=== PATIENT | male | born 1960 | race Caucasian/White ===

== ENCOUNTER → 2017-08-18 | Outpatient (CLI) | payer BC | END | disposition home or self-care (01) | LOC: CARDREHAB 10:43 | DX: R07.9 Chest pain, unspecified (principal) ==

== ENCOUNTER → 2019-10-12 | Outpatient (CLI) | payer BC | LOC: LAB 12:50 | DX: R05 Cough (principal); R53.83 Other fatigue ==

== ENCOUNTER → 2020-05-21 | Outpatient (CLI) | payer BC | LOC: LAB 07:21 | DX: J02.9 Acute pharyngitis, unspecified (principal); R19.7 Diarrhea, unspecified; Z20.828 Contact with and (suspected) exposure to other viral communicable diseases ==

== ENCOUNTER → 2020-08-27 | Outpatient (CLI) | payer BC ==
[2020-08-27 17:14] LABS: HEMATOCRIT 46.5 % (42.0-52.0); HEMOGLOBIN 15.2 g/dL (13.5-18.0); MEAN CELL VOLUME 89 fl (78-100); MEAN CORPUSCULAR HEMOGLOBIN 29 pg (27-31); MEAN CORPUSCULAR HGB CONC 33 g/dL (33-37); MEAN PLATELET VOLUME 8.5 fl (7.4-10.4); PLATELET COUNT 308 K/mm3 (130-400); RED BLOOD COUNT 5.22 M/mm3 (4.20-5.60); RED CELL DISTRIBUTION WIDTH 12.6 % (11.5-14.5); WHITE BLOOD COUNT 11.5 K/mm3 (4.8-10.8)
[2020-08-27 17:27] LABS: POTASSIUM 3.9 mmol/L (3.5-5.1)
[2020-08-27 17:28] LABS: ALBUMIN 4.1 g/dL (3.5-5.0)
[2020-08-27 17:29] LABS: CALCIUM 8.9 mg/dL (8.3-10.5)
[2020-08-27 17:30] LABS: TOTAL PROTEIN 7.3 g/dL (6.4-8.3)
[2020-08-27 17:32] LABS: TOTAL BILIRUBIN 0.6 mg/dL (0.2-1.2)
[2020-08-27 19:02] LABS: LYMPHOCYTE 2 % (20-51); MONOCYTE 2 % (3-10); NEUTROPHILS 96 % (42-75)
[2020-08-28 18:13] LABS: HEPATITIS C ANTIBODY Negative (Negative)
[2020-08-28 19:17] LABS: SYPHILIS AB SCREEN w REFLEX Negative (Negative)
== END ==
LOC: LAB 17:02
PROVIDERS: Family Medicine
DX: Z00.00 Encounter for general adult medical examination without abnormal findings (principal); E78.5 Hyperlipidemia, unspecified; Z72.51 High risk heterosexual behavior

== ENCOUNTER → 2020-09-24 | Outpatient (REF) | LOC: LAB 09:13 | DX: R53.83 Other fatigue (principal); E55.9 Vitamin D deficiency, unspecified ==

== ENCOUNTER → 2020-10-16 | Outpatient (CLI) | payer BC | LOC: RAD 10:50 | DX: M41.86 Other forms of scoliosis, lumbar region (principal); M51.36 Other intervertebral disc degeneration, lumbar region ==

== ENCOUNTER → 2020-10-16 | Outpatient (REF) | LOC: LAB 10:50 | DX: Z72.51 High risk heterosexual behavior (principal) ==

== ENCOUNTER → 2020-10-26 | Outpatient (REF) | LOC: LAB 10:53 | DX: Z72.51 High risk heterosexual behavior (principal) ==

== ENCOUNTER → 2021-01-23 | Outpatient (REF) | LOC: LAB 14:50 | DX: R05 Cough (principal) ==

== ENCOUNTER → 2021-03-26 | Outpatient (REF) | LOC: LAB 10:17 | DX: R05.9 Cough, unspecified (principal) ==

== ENCOUNTER 2021-05-21 16:42 | Emergency (ER) | payer BC ==
[2021-05-21 17:23] LABS: BASO # 0.04 K/mm3 (0.02-0.10); EOS # 0.16 K/mm3 (0.04-0.40); EOS % 2.5 % (0.0-4.0); HEMATOCRIT 44.9 % (42.0-52.0); LYMPH# 1.46 K/mm3 (1.50-4.00); MEAN CELL VOLUME 89 fl (78-100); MEAN CORPUSCULAR HEMOGLOBIN 30 pg (27-31); MEAN CORPUSCULAR HGB CONC 33 g/dL (33-37); MEAN PLATELET VOLUME 8.6 fl (7.4-10.4); MONO # 0.44 K/mm3 (0.20-0.80); NEU # 4.33 K/mm3 (1.40-6.50); PLATELET COUNT 276 K/mm3 (130-400); RED BLOOD COUNT 5.03 M/mm3 (4.20-5.60); WHITE BLOOD COUNT 6.4 K/mm3 (4.8-10.8)
[2021-05-21 17:32] LABS: ALBUMIN 4.4 g/dL (3.5-5.0)
[2021-05-21 17:33] LABS: POTASSIUM 3.7 mmol/L (3.5-5.1); SODIUM 141 mmol/L (136-145)
[2021-05-21 17:34] LABS: CALCIUM 9.5 mg/dL (8.3-10.5)
[2021-05-21 17:35] LABS: GLUCOSE 94 mg/dL (75-110); TOTAL PROTEIN 7.4 g/dL (6.4-8.3)
[2021-05-21 17:36] LABS: CARBON DIOXIDE 26 mmol/L (22-29)
[2021-05-21 17:37] LABS: TOTAL BILIRUBIN 0.6 mg/dL (0.2-1.2)
[2021-05-21 17:40] LABS: AST-SGOT 15 U/L (5-34)
[2021-05-21 17:41] LABS: ALT/SGPT 13 U/L (0-55)
[2021-05-21 17:49] LABS: TROPONIN-I < 0.03 ng/mL (<0.030)
[2021-05-21 17:53] LABS: D-DIMER 0.1 mg/L FEU (0.15-0.50)
[2021-05-21] MEDS ORDERED: ZYRTEC10 M3 PO (18:48)
[2021-05-21] MEDS ORDERED: PROAIR HFA0.09 MG/AC IH (18:48)
[2021-05-21 18:49] VITALS: BP 152/108
== END 2021-05-21 18:54 | disposition home or self-care (01) ==
LOC: ED 16:42
PROVIDERS: Nurse Practitioner
DX: R06.02 Shortness of breath (principal); I10 Essential (primary) hypertension

== ENCOUNTER → 2021-08-23 | Outpatient (CLI) | payer BC ==
[~2021-08-23] MED LIST: PROAIR HFA0.09 MG/AC IH; ZYRTEC10 M3 PO
== END ==
LOC: RAD 09:14 → LAB 09:14
DX: M54.50 Low back pain, unspecified (principal)

== ENCOUNTER → 2023-08-03 | Outpatient (CLI) | payer OTHER | LOC: RAD 16:11 | DX: M16.0 Bilateral primary osteoarthritis of hip (principal) ==

== ENCOUNTER 2023-11-26 11:12 | Emergency (ER) | payer OTHER ==
[~2023-11-26] VITALS: Ht 177.8 cm; Wt 81.8 kg
[2023-11-26] MEDS ORDERED: NS 1,000 ML IV SCH (12:00)
[2023-11-26 12:15] LABS: BASO # 0.02 K/mm3 (0.02-0.10); EOS # 0.24 K/mm3 (0.04-0.40); EOS % 4.8 % (0.0-4.0); LYMPH# 1.14 K/mm3 (1.50-4.00); MEAN CELL VOLUME 91 fl (78-100); MEAN CORPUSCULAR HEMOGLOBIN 30 pg (27-31); MEAN CORPUSCULAR HGB CONC 33 g/dL (33-37); MEAN PLATELET VOLUME 8.8 fl (7.4-10.4); MONO # 0.35 K/mm3 (0.20-0.80); NEU # 3.29 K/mm3 (1.40-6.50); PLATELET COUNT 249 K/mm3 (130-400); RED BLOOD COUNT 4.97 M/mm3 (4.20-5.60); RED CELL DISTRIBUTION WIDTH 12.1 % (11.5-14.5); WHITE BLOOD COUNT 5.1 K/mm3 (4.8-10.8)
[2023-11-26 12:16] LABS: ALBUMIN 4.4 g/dL (3.4-4.8)
[2023-11-26 12:18] LABS: CALCIUM 9.4 mg/dL (8.3-10.5)
[2023-11-26 12:19] LABS: TOTAL PROTEIN 7.5 g/dL (6.2-8.1)
[2023-11-26 12:21] LABS: TOTAL BILIRUBIN 0.5 mg/dL (0.2-1.2)
[2023-11-26 12:34] LABS: PARTIAL THROMBOPLASTIN TIME 22.8 SECONDS (21.0-32.0)
[2023-11-26 12:35] LABS: D-DIMER 0.44 mg/L FEU (0.15-0.50)
[2023-11-26 14:35] VITALS: BP 140/80
== END 2023-11-26 14:00 | disposition home or self-care (01) ==
LOC: ED 11:12
PROVIDERS: Physician Assistant
DX: R07.89 Other chest pain (principal)